=== PATIENT | male | born 1955 | race Caucasian/White ===

== ENCOUNTER 2018-06-01 16:32 | Inpatient (IN) ==
[2018-06-01 17:05] LABS: Basophils # 0.1 10*3/uL (0.0-0.2); Basophils % 0.9 % (0.0-0.8); Eosinophils # 0.3 10*3/uL (0.0-0.87); Eosinophils % 4.1 % (0.00-10.9); Hematocrit 46.4 VOL% (42.0-52.0); Hemoglobin 15.8 GM/DL (14.0-18.0); Immature Granulocytes % 0.3 %; Immature Granulocytes Absolute 0.02 #; Lymphocytes # 2.1 10*3/uL (1.4-4.0); Lymphocytes % 32.6 % (21.2-54.2); Mean Corpuscular HGB Conc 34.1 GM/DL (32-36); Mean Corpuscular Hemoglobin 28 PG (27-34); Mean Corpuscular Volume 82.9 FL (87-102); Mean Platelet Volume 10.9 FL (9.6-12.0); Monocytes # 0.9 10*3/uL (0.11-0.8); Monocytes % 13.7 % (1.7-12.7); Neutrophils # 3.1 10*3/uL (1.4-7.4); Neutrophils % 48.4 % (38.7-73.9); Platelet Count 188 T/CUMM (130-400); Red Cell Distribution Width 14.6 % (9.3-17.3); White Blood Count 6.3 T/CUMM (4-12)
[2018-06-01 17:14] LABS: PT Patient Result 10.8 SECS; Partial Thromboplastin Time 27.9 SECS (0-40)
[2018-06-01 17:27] LABS: Albumin 3.8 G/DL (3.4-5.0); Bilirubin,Total 0.4 MG/DL (0.2-1.0); Calcium 9.1 MG/DL (8.5-10.1); Osmolality,Calculated 276.7 MOS/KG (273-304); Potassium 3.9 MMOL/L (3.5-5.1); Total Protein 7.8 G/DL (6.4-8.3)
[2018-06-02] MEDS ORDERED: ALBUTEROL/IPRATROPIUM 3 ML NEB RESP TX PRN (01:19)
[2018-06-02] MEDS ORDERED: ONDANSETRON 4 MG/2 ML VIAL IV PRN (01:19)
[2018-06-02] MEDS ORDERED: GLUCAGON 1 MG VIAL IM PRN (01:19)
[2018-06-02] MEDS ORDERED: DEXTROSE 50% 25 GM/50 ML VIAL IV PRN (01:19)
[2018-06-02] MEDS ORDERED: ASPIRIN 325 MG TABLET PO STA (01:19)
[2018-06-02] MEDS ORDERED: ACETAMINOPHEN 325 MG TABLET PO PRN (01:19)
[2018-06-02] MEDS ORDERED: MORPHINE 4 MG/1 ML VIAL IV PRN (01:19)
[2018-06-02 01:41] LABS: Basophils # 0.1 10*3/uL (0.0-0.2); Basophils % 0.7 % (0.0-0.8); Eosinophils # 0.3 10*3/uL (0.0-0.87); Eosinophils % 3.9 % (0.00-10.9); Hematocrit 46.3 VOL% (42.0-52.0); Hemoglobin 15.7 GM/DL (14.0-18.0); Immature Granulocytes % 0.4 %; Immature Granulocytes Absolute 0.03 #; Lymphocytes # 2.6 10*3/uL (1.4-4.0); Lymphocytes % 34.2 % (21.2-54.2); Mean Corpuscular HGB Conc 33.9 GM/DL (32-36); Mean Corpuscular Hemoglobin 28 PG (27-34); Mean Corpuscular Volume 82.5 FL (87-102); Mean Platelet Volume 10.9 FL (9.6-12.0); Monocytes # 0.9 10*3/uL (0.11-0.8); Monocytes % 11.5 % (1.7-12.7); Neutrophils # 3.8 10*3/uL (1.4-7.4); Neutrophils % 49.3 % (38.7-73.9); Platelet Count 193 T/CUMM (130-400); Red Blood Count 5.61 MC/CUMM (3.8-5.5); Red Cell Distribution Width 14.6 % (9.3-17.3); White Blood Count 7.6 T/CUMM (4-12)
[2018-06-02 02:13] LABS: Albumin 3.7 G/DL (3.4-5.0); Bilirubin,Total 0.7 MG/DL (0.2-1.0); Calcium 9.2 MG/DL (8.5-10.1); Osmolality,Calculated 275.8 MOS/KG (273-304); Potassium 3.5 MMOL/L (3.5-5.1)
[2018-06-02 02:21] LABS: Risk Ratio 3.14; VLDL CHOLESTEROL 35.4 MG/DL
[2018-06-02] MEDS: DOCUSATE SODIUM 100 MG CAPSULE PO SCH ×3 (02:25→22:19)
[2018-06-02] MEDS: ATORVASTATIN 80 MG TABLET PO SCH ×2 (02:26→22:20)
[2018-06-02] MEDS: ENOXAPARIN 120 MG/0.8 ML SYRINGE SUBCUT SCH ×2 (02:26→09:21)
[2018-06-02] MEDS: LOSARTAN 50 MG TABLET PO SCH ×3 (02:26→22:20)
[2018-06-02] MEDS: PANTOPRAZOLE 40 MG TABLET PO SCH ×3 (02:26→22:31)
[2018-06-02] MEDS: POTASSIUM CITRATE 10 MEQ TABLET PO SCH ×3 (02:26→22:23)
[2018-06-02] MEDS: SODIUM CHLORIDE 0.9% 1,000 ML IV SCH (02:27)
[2018-06-02] MEDS: INSULIN REGULAR 100 UNIT/ML SUBCUT SCH ×5 (02:27→22:36)
[2018-06-02] MEDS: NITROGLYCERIN 2% OINT 1 INCH/GM PACK TOP SCH ×5 (02:27→23:58)
[2018-06-02] MEDS ORDERED: ASPIRIN EC 325 MG TABLET PO SCH (09:00)
[2018-06-02] MEDS ORDERED: PANTOPRAZOLE 40 MG TABLET PO SCH (09:00)
[2018-06-02] MEDS: SOTALOL 80 MG TABLET PO SCH (09:20)
[2018-06-02] MEDS: ASPIRIN EC 81 MG TABLET PO SCH (09:20)
[2018-06-02] MEDS: hydroCHLOROthiazide 12.5 MG CAPSULE PO SCH (09:21)
[2018-06-02] MEDS: traMADol 50 MG TABLET PO SCH ×2 (15:26→22:26)
[2018-06-02] MEDS: ACETAMINOPHEN 325 MG TABLET PO SCH ×2 (15:26→22:26)
[2018-06-02] MEDS ORDERED: SERTRALINE 25 MG TABLET PO ONE (15:30)
[2018-06-02] MEDS: NAPROXEN 250 MG TABLET PO SCH ×2 (15:44→22:21)
[2018-06-02] MEDS: GABAPENTIN 100 MG CAPSULE PO SCH ×2 (15:44→22:21)
[2018-06-02] MEDS ORDERED: SOTALOL 80 MG TABLET PO SCH (21:00)
[2018-06-02] MEDS ORDERED: SERTRALINE 25 MG TABLET PO SCH (21:00)
[2018-06-03] MEDS: SODIUM CHLORIDE 0.9% 1,000 ML IV SCH (03:39)
[2018-06-03 05:37] LABS: Basophils % 0.7 % (0.0-0.8); Eosinophils # 0.3 10*3/uL (0.0-0.87); Eosinophils % 4.1 % (0.00-10.9); Hematocrit 42.2 VOL% (42.0-52.0); Hemoglobin 14.5 GM/DL (14.0-18.0); Immature Granulocytes % 0.5 %; Immature Granulocytes Absolute 0.03 #; Lymphocytes # 2.1 10*3/uL (1.4-4.0); Lymphocytes % 34.6 % (21.2-54.2); Mean Corpuscular HGB Conc 34.4 GM/DL (32-36); Mean Corpuscular Hemoglobin 28 PG (27-34); Mean Corpuscular Volume 81.8 FL (87-102); Mean Platelet Volume 11.3 FL (9.6-12.0); Monocytes # 0.5 10*3/uL (0.11-0.8); Monocytes % 8.8 % (1.7-12.7); Neutrophils # 3.2 10*3/uL (1.4-7.4); Neutrophils % 51.3 % (38.7-73.9); Platelet Count 165 T/CUMM (130-400); Red Blood Count 5.16 MC/CUMM (3.8-5.5); Red Cell Distribution Width 14.6 % (9.3-17.3); White Blood Count 6.1 T/CUMM (4-12)
[2018-06-03 06:00] LABS: Calcium 8.4 MG/DL (8.5-10.1); Osmolality,Calculated 277.7 MOS/KG (273-304); Potassium 3.8 MMOL/L (3.5-5.1)
[2018-06-03] MEDS: NITROGLYCERIN 2% OINT 1 INCH/GM PACK TOP SCH (06:23)
[2018-06-03] MEDS: LOSARTAN 50 MG TABLET PO SCH (09:11)
[2018-06-03] MEDS: hydroCHLOROthiazide 12.5 MG CAPSULE PO SCH (09:11)
[2018-06-03] MEDS: SOTALOL 80 MG TABLET PO SCH (09:12)
[2018-06-03] MEDS: NAPROXEN 250 MG TABLET PO SCH (09:12)
[2018-06-03] MEDS: traMADol 50 MG TABLET PO SCH (09:12)
[2018-06-03] MEDS: ASPIRIN EC 81 MG TABLET PO SCH (09:13)
[2018-06-03] MEDS: POTASSIUM CITRATE 10 MEQ TABLET PO SCH (09:13)
[2018-06-03] MEDS: PANTOPRAZOLE 40 MG TABLET PO SCH (09:13)
[2018-06-03] MEDS: GABAPENTIN 100 MG CAPSULE PO SCH (09:14)
[2018-06-03] MEDS: ACETAMINOPHEN 325 MG TABLET PO SCH (10:24)
[2018-06-03] MEDS: DOCUSATE SODIUM 100 MG CAPSULE PO SCH (10:24)
[2018-06-03] MEDS: INSULIN REGULAR 100 UNIT/ML SUBCUT SCH (10:24)
[2018-06-03 10:31] VITALS: BP 132/82
[2018-06-03] MEDS ORDERED: NITROGLYCERIN SL 0.4 MG TABLET SL PRN (11:50)
[2018-06-04] MEDS ORDERED: PNEUMOCOCCAL VACCINE (13 VALENT) 0.5 ML SYRINGE IM ONE (08:00)
== END 2018-06-03 13:33 | disposition home or self-care (01) | DRG 313 ==
LOC: N.ED 16:32 → N.EDINP 20:27 → N.ICU 06-02 00:30
PROVIDERS: ADMIT Family Medicine; ATTEND Family Medicine

== ENCOUNTER 2018-10-08 00:58 | Observation (INO) ==
[2018-10-08] MEDS ORDERED: SODIUM CHLORIDE 0.9% 1,000 ML IV STA (01:30)
[2018-10-08] MEDS ORDERED: ONDANSETRON 4 MG/2 ML VIAL IV STA (01:30)
[2018-10-08 02:27] LABS: Basophils % 0.1 % (0.0-0.8); Eosinophils # 0.1 10*3/uL (0.0-0.87); Eosinophils % 0.9 % (0.00-10.9); Hemoglobin 16.9 GM/DL (14.0-18.0); Immature Granulocytes % 0.4 %; Immature Granulocytes Absolute 0.05 #; Lymphocytes # 1.5 10*3/uL (1.4-4.0); Lymphocytes % 11.9 % (21.2-54.2); Mean Corpuscular HGB Conc 32.5 GM/DL (32-36); Mean Corpuscular Hemoglobin 28 PG (27-34); Mean Corpuscular Volume 86.1 FL (87-102); Mean Platelet Volume 10.8 FL (9.6-12.0); Monocytes # 0.7 10*3/uL (0.11-0.8); Monocytes % 5.7 % (1.7-12.7); Neutrophils # 10.5 10*3/uL (1.4-7.4); Platelet Count 204 T/CUMM (130-400); Red Blood Count 6.04 MC/CUMM (3.8-5.5); Red Cell Distribution Width 13.9 % (9.3-17.3); White Blood Count 12.9 T/CUMM (4-12)
[2018-10-08 02:48] LABS: Albumin 3.3 G/DL (3.4-5.0); Bilirubin,Total 0.4 MG/DL (0.2-1.0); Calcium 8.4 MG/DL (8.5-10.1); Osmolality,Calculated 278.7 MOS/KG (273-304); Potassium 3.9 MMOL/L (3.5-5.1); Total Protein 7.3 G/DL (6.4-8.3)
[2018-10-08] MEDS: SODIUM CHLORIDE 0.45% 1,000 ML IV SCH ×4 (04:21→20:32)
[2018-10-08] MEDS ORDERED: GLUCAGON 1 MG VIAL IM PRN (12:09)
[2018-10-08] MEDS ORDERED: NITROGLYCERIN SL 0.4 MG TABLET SL PRN (12:09)
[2018-10-08] MEDS ORDERED: DEXTROSE 50% 25 GM/50 ML SYRINGE IV PRN (12:09)
[2018-10-08] MEDS ORDERED: CETIRIZINE 5 MG TABLET PO PRN (15:09)
[2018-10-08] MEDS: FLUTICASONE 50 MCG NASAL SPRAY 16 GM BOTTLE BOTH NARES SCH ×2 (15:41→16:08)
[2018-10-08] MEDS ORDERED: CETIRIZINE 10 MG TABLET PO PRN (16:30)
[2018-10-08] MEDS ORDERED: PROMETHAZINE INJ 12.5 MG in SODIUM CHLORIDE 0.9% 50 ML IV PRN (17:05)
[2018-10-08] MEDS ORDERED: ONDANSETRON 4 MG/2 ML VIAL IV PRN (17:05)
[2018-10-08] MEDS: INSULIN LISPRO 100 UNIT/ML SUBCUT SCH (17:14)
[2018-10-08] MEDS: SOTALOL 80 MG TABLET PO SCH (18:42)
[2018-10-08] MEDS: LOPERAMIDE 2 MG CAPSULE PO PRN ×2 (18:42→22:25)
[2018-10-08] MEDS: PANTOPRAZOLE 40 MG TABLET PO SCH (22:25)
[2018-10-08] MEDS: ATORVASTATIN 80 MG TABLET PO SCH (22:25)
[2018-10-08] MEDS: SERTRALINE 25 MG TABLET PO SCH (22:25)
[2018-10-09] MEDS: INSULIN LISPRO 100 UNIT/ML SUBCUT SCH ×5 (01:45→23:41)
[2018-10-09] MEDS: SODIUM CHLORIDE 0.45% 1,000 ML IV SCH ×3 (04:46→13:45)
[2018-10-09] MEDS ORDERED: RANITIDINE 150 MG/10 ML 30 ML BOTTLE PO ONE (04:56)
[2018-10-09 05:35] LABS: Basophils % 0.1 % (0.0-0.8); Eosinophils # 0.2 10*3/uL (0.0-0.87); Hematocrit 45.4 VOL% (42.0-52.0); Immature Granulocytes % 0.3 %; Immature Granulocytes Absolute 0.03 #; Lymphocytes # 2.6 10*3/uL (1.4-4.0); Lymphocytes % 28.1 % (21.2-54.2); Mean Corpuscular HGB Conc 32.8 GM/DL (32-36); Mean Corpuscular Hemoglobin 28 PG (27-34); Mean Corpuscular Volume 85.3 FL (87-102); Mean Platelet Volume 11.5 FL (9.6-12.0); Monocytes # 0.9 10*3/uL (0.11-0.8); Monocytes % 9.7 % (1.7-12.7); Neutrophils # 5.5 10*3/uL (1.4-7.4); Neutrophils % 59.8 % (38.7-73.9); Platelet Count 185 T/CUMM (130-400); Red Blood Count 5.32 MC/CUMM (3.8-5.5); White Blood Count 9.2 T/CUMM (4-12)
[2018-10-09 05:37] LABS: Hemoglobin 14.9 GM/DL (14.0-18.0)
[2018-10-09 05:46] LABS: Albumin 3.3 G/DL (3.4-5.0); Bilirubin,Direct 0.17 MG/DL (0.0-0.20); Bilirubin,Indirect 0.8 MG/DL (0.0-1.0); Calcium 8.3 MG/DL (8.5-10.1); Osmolality,Calculated 275.7 MOS/KG (273-304); Potassium 3.5 MMOL/L (3.5-5.1); Total Protein 6.9 G/DL (6.4-8.3)
[2018-10-09] MEDS: amLODIPine 5 MG TABLET PO SCH (08:56)
[2018-10-09] MEDS: SOTALOL 80 MG TABLET PO SCH ×2 (08:56→18:23)
[2018-10-09] MEDS: PANTOPRAZOLE 40 MG TABLET PO SCH ×2 (08:56→21:51)
[2018-10-09] MEDS: FLUTICASONE 50 MCG NASAL SPRAY 16 GM BOTTLE BOTH NARES SCH (08:57)
[2018-10-09] MEDS: ASPIRIN EC 81 MG TABLET PO SCH (08:57)
[2018-10-09] MEDS: LOPERAMIDE 2 MG CAPSULE PO PRN (09:05)
[2018-10-09] MEDS: ATORVASTATIN 80 MG TABLET PO SCH (21:51)
[2018-10-09] MEDS: SERTRALINE 25 MG TABLET PO SCH (21:51)
[2018-10-10] MEDS: SODIUM CHLORIDE 0.45% 1,000 ML IV SCH (02:52)
[2018-10-10] MEDS: SOTALOL 80 MG TABLET PO SCH (09:48)
[2018-10-10] MEDS: ASPIRIN EC 81 MG TABLET PO SCH (09:49)
[2018-10-10] MEDS: PANTOPRAZOLE 40 MG TABLET PO SCH (09:49)
[2018-10-10] MEDS: FLUTICASONE 50 MCG NASAL SPRAY 16 GM BOTTLE BOTH NARES SCH (09:49)
[2018-10-10] MEDS: amLODIPine 5 MG TABLET PO SCH (09:49)
[2018-10-10] MEDS: INSULIN LISPRO 100 UNIT/ML SUBCUT SCH ×2 (10:47→12:53)
[2018-10-10 15:56] VITALS: BP 133/74
== END 2018-10-10 17:05 | disposition home or self-care (01) ==
LOC: EDUNIT# → N.EDINP 00:58 → N.ED 00:58 → N.TELEN 03:50
PROVIDERS: ADMIT Family Medicine; ATTEND Family Medicine